=== PATIENT | female | born 1980 | race African-American/Black ===

== ENCOUNTER 2016-11-16 09:01 | Emergency (ER) | payer MEDICAID, OTHER ==
[~2016-11-16] VITALS: Ht 165.1 cm; Wt 72.2 kg
[2016-11-16 09:09] VITALS: Ht 165.1 cm; Wt 72.2 kg
[2016-11-16] MEDS ORDERED: OLANZAPINE 5 MG TAB PO ONE (11:30)
[2016-11-16 12:51] VITALS: BP 132/71; PULSE 101; RESP 20; TEMP 98.4
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
== END 2016-11-16 12:53 | disposition home or self-care (01) ==
LOC: E/R 09:01
DX: F32.9 Major depressive disorder, single episode, unspecified (principal); F43.20 Adjustment disorder, unspecified; F17.210 Nicotine dependence, cigarettes, uncomplicated; J45.909 Unspecified asthma, uncomplicated
CPT/HCPCS: Z7502; Z7610; 99284